=== PATIENT | male | born 1995 | race African-American/Black ===

== ENCOUNTER 2022-01-03 16:39 | Emergency (ER) ==
[2022-01-03] MEDS ORDERED: Ibuprofen 200 MG TAB ONE (17:18)
[2022-01-03] MEDS ORDERED: Dexamethasone 10 MG/ML VIAL ONE (17:18)
== END 2022-01-03 18:12 | disposition home or self-care (01) ==
LOC: CSHERS 16:39
DX: U07.1 COVID-19 (principal); F17.290 Nicotine dependence, other tobacco product, uncomplicated
CPT/HCPCS: 87804; 99283; J1100; U0003; U0005

== ENCOUNTER 2022-01-05 10:29 | Emergency (ER) | payer SELFPAY ==
[2022-01-05] MEDS ORDERED: Mag-Al Plus 1200 MG/1200 MG/120 MG/30 ML UDCUP ONE (12:04)
[2022-01-05] MEDS ORDERED: Lidocaine Viscous Sol 2% 15 ml UD Cup ONE (12:04)
== END 2022-01-05 12:03 | disposition home or self-care (01) ==
LOC: CSHERS 10:29
DX: U07.1 COVID-19 (principal); K29.70 Gastritis, unspecified, without bleeding; F17.290 Nicotine dependence, other tobacco product, uncomplicated
CPT/HCPCS: 99283

== ENCOUNTER 2023-03-14 15:15 | Emergency (ER) | payer OTHER, SELFPAY ==
[2023-03-14] MEDS ORDERED: Ketorolac Tromethamine 30 MG/ML VIAL ONE (16:40)
== END 2023-03-14 17:38 | disposition home or self-care (01) ==
LOC: CSHERS 15:15
DX: K08.89 Other specified disorders of teeth and supporting structures (principal); F17.290 Nicotine dependence, other tobacco product, uncomplicated
CPT/HCPCS: 96372; 99283; J1885

== ENCOUNTER 2024-03-10 10:15 | Emergency (ER) | payer OTHER ==
[2024-03-10] MEDS ORDERED: Ibuprofen 200 MG TAB ONE (10:36)
[2024-03-10] MEDS ORDERED: Acetaminophen 500 MG TAB ONE (10:37)
== END 2024-03-10 11:33 | disposition home or self-care (01) ==
LOC: CSHERS 10:15
DX: R07.89 Other chest pain (principal); F17.290 Nicotine dependence, other tobacco product, uncomplicated
CPT/HCPCS: 71045